=== PATIENT | male | born 1965 | race Caucasian/White ===

== ENCOUNTER 2025-02-13 07:51 | Day surgery (SDC) | payer OTHER ==
[~2025-02-13] VITALS: Ht 177.8 cm; Wt 104.5 kg
[~2025-02-13 07:51] MED LIST: ASPIRIN EC325 MG PO; BENADRYL25 MG PO; FAMOTIDINE20 MG PO; FLONASE ALLERG9.9 ML NAS; IBLOOD GLUCOSE TEST STRIP 1 EA TEST VI PRN; LACTATED RINGER'S 1,000 ML IV SCH; LIDOCAINE HCL 1% 5 ML SDV INJ ONE; LISINOPRIL10 MG PO; MIDAZOLAM HCL 5 MG/5 ML VIAL IV PRN; MK-7180 MCG PO; MULTIVITAMIN1 EACH PO; NORVASC5 MG PO; OMEPRAZOLE20 M1 PO; PROBIOTIC1 EAC5 PO; VITAMIN D350 MC3 PO; VITAMIN K-1500 MCG SL; VITAMIN K2 (M100 MCG PO; WELLBUTRIN XL150 MG PO; fentaNYL citrate 100 MCG/2 ML VIAL IV PRN
[2025-02-13 08:24] VITALS: BP 140/93
[2025-02-13] MEDS ORDERED: ESCITALOPRAM OXA5 MG PO (08:28)
[2025-02-13] MEDS ORDERED: MIDAZOLAM HCL 5 MG/5 ML VIAL ONE (09:00)
[2025-02-13] MEDS ORDERED: fentaNYL citrate 100 MCG/2 ML VIAL ONE (09:00)
--- NOTE | 2025-02-13 10:10 | NUR ---
02/13/25 1010 Shelbie Keller 1004- PT ARRIVES TO PACU, LEFT LATERAL POSITION, REACTIVE TO STIMULUS. BREATHING EVEN AND NON LABORED, O2 AT 3L PER NC. LR INFUSING TO LFA IV. PT ABD FIRM, ENCOURAGED TO PASS GAS, PT OPENS SLIGHTLY AND FALLS BACK TO SLEEP. ALL MONITORS IN PLACE. 1009- PT RESTING AT THIS TIME, PASSING GAS. CONTINUE TO MONITOR.
[2025-02-13 11:06] VITALS: BP 136/96
--- NOTE | 2025-02-13 12:48 | OR ---
[facility] [address] [place], [place] [address] Signed DATE OF OPERATION: 02/13/2025 SURGEON: Suma Vizcaino MD PREOPERATIVE DIAGNOSIS: Colon screening. POSTOPERATIVE DIAGNOSES: 1. Sigmoid diverticulosis. 2. Polyps x2, cecum and sigmoid colon PROCEDURE: Total colonoscopy to cecum with cold morcellation polypectomy x1 and hot snare polypectomy x1. ANESTHESIA: Intravenous sedation fentanyl 100 mcg and Versed 5 mg. INDICATION: This 60-year-old white man is a patient of ELMER Ang. He last underwent colonoscopy by me in 2013 at which time he was found to have diverticulosis. He has no current symptoms of bleeding, diarrhea, or constipation and no family history of colon cancer. He is admitted at this time to undergo colonoscopy. He understands the risk of bleeding, infection, and perforation. FINDINGS: The prep was excellent. Complete colonoscopy was undertaken of the cecum with full intubation of the cecum. He had numerous large diverticula of the sigmoid and left colon. There was one small polyp of the cecum, which was excised with cold morcellation technique and a larger sessile polyp at 25 cm, excised by hot snare polypectomy technique. There were no other findings of note. DESCRIPTION OF PROCEDURE: The patient was brought to the endoscopy suite and placed in lateral decubitus position, given intravenous sedation to the points of slurred speech and nystagmus. Digital rectal examination was normal. An Olympus video colonoscope was passed in the rectum and manipulated throughout the colon noting numerous diverticula of the sigmoid and left colon. Scope was ultimately passed to the cecum. The ileocecal valve and appendiceal orifice were normal. The Electronically Signed By: SUMA VIZCAINO MD 02/13/25 1248 PATIENT NAME: LI LACEY OPERATIVE REPORT DATE OF : 63 REPORT #: [id number] PHYSICIAN: SUMA VIZCAINO MD PCP: CARROLL ESPINOSA MD REPORT IS CONFIDENTIAL AND NOT TO BE RELEASED WITHOUT AUTHORIZATION [facility] [address] [place] [id number] Signed polyp of the cecum was excised with cold morcellation technique. The scope was then withdrawn. Examination showed no abnormality until approximately 25 cm from the anal verge where a sessile quite a bit larger polyp was noted, this was excised with hot snare polypectomy technique completely. A Carpio-Net was used to retrieve the polyp. The scope was further withdrawn, no other findings of note. He was taken to recovery room in good condition and suffered no complication. CONCLUDING DIAGNOSIS: Polyps x2 and diverticulosis. PLAN: Recommend repeat colonoscopy in 5 to 7 years, sooner if symptoms should develop. He will return to the ongoing care of ELMER Ang. MD VANNESSA Tate/ZULEIMA /[id number] cc: ELMER Ang Copies: JEREMY DOWNEY ~ Electronically Signed By: SUMA VIZCAINO MD 02/13/25 1248 PATIENT NAME: LI LACEY OPERATIVE REPORT DATE OF : 63 REPORT #: [id number] PHYSICIAN: SUMA VIZCAINO MD PCP: CARROLL ESPINOSA MD REPORT IS CONFIDENTIAL AND NOT TO BE RELEASED WITHOUT AUTHORIZATION
--- NOTE | 2025-02-17 12:09 | PATH ---
[facility] [address] [place], [place] [address] Signed SPECIMEN(S): A CECUM POLYP SPECIMEN(S): B COLON POLYP, 25 CM SPECIMEN SOURCE: A. CECUM POLYP B. COLON POLYP, 25 CM CLINICAL HISTORY: Screening, polyps x 2, diverticulosis FINAL PATHOLOGIC DIAGNOSIS: A. Cecum polyp: - Tubular adenoma (multiple fragments). B. Colon polyp at 25 cm: - Tubular adenoma. JVR:wade MICROSCOPIC EXAMINATION: Histologic sections of all submitted blocks are examined by light microscopy. These findings, together with the gross examination, support the pathologic diagnosis. GROSS DESCRIPTION: A. The specimen, labeled and designated "Little, S, cecum polyp," is received in formalin and consists of five byrnes soft tissue fragments, ranging from 0.1-0.4 cm. Entirely submitted in (A1). B. The specimen, labeled and designated "Little, S, colon polyp, 25 cm," is received in formalin and consists of one byrnes soft tissue fragment, 0.9 cm. Entirely submitted in (B1). AB (under the direct supervision of a pathologist) The Gross Description was prepared using a voice recognition system. The report was reviewed for accuracy; however, sound-alike word errors, addition and/or deletions may occur. If there is any question about this report, please contact Client Services. PERFORMING LABORATORY: Technical component was performed by [facility], [address] [place] [id number] (CLIA# [id number]). Professional interpretation was performed by [facility], [address] [place] [id number] (CLIA#: [id number]). PATIENT NAME: LI LACEY PATHOLOGY DATE OF : 63 REPORT #: [id number] PHYSICIAN: [facility] PCP: CARROLL ESPINOSA MD REPORT IS CONFIDENTIAL AND NOT TO BE RELEASED WITHOUT AUTHORIZATION [facility] [address] [place] [id number] Signed Diagnostician: Carrlol Alegria MD Pathologist Electronically Signed 02/17/2025 Copies: ~ PATIENT NAME: LI LACEY PATHOLOGY DATE OF : 63 REPORT #: [id number] PHYSICIAN: [facility] PCP: CARROLL ESPINOSA MD REPORT IS CONFIDENTIAL AND NOT TO BE RELEASED WITHOUT AUTHORIZATION
== END 2025-02-13 11:05 | disposition home or self-care (01) ==
LOC: DS 07:51
PROVIDERS: ATTEND Surgery
PROC: 0DBN8ZZ Excision of Sigmoid Colon, Via Natural or Artificial Opening Endoscopic (ICD-10-PCS; 2025-02-13)
PROC: 0DBH8ZZ Excision of Cecum, Via Natural or Artificial Opening Endoscopic (ICD-10-PCS; principal; 2025-02-13 09:00)
DX: Z12.11 Encounter for screening for malignant neoplasm of colon (principal); D12.0 Benign neoplasm of cecum; D21.6 Benign neoplasm of connective and other soft tissue of trunk, unspecified; K57.30 Diverticulosis of large intestine without perforation or abscess without bleeding; K40.90 Unilateral inguinal hernia, without obstruction or gangrene, not specified as recurrent
CPT/HCPCS: 99153; G0500; J2250; J3010; J7121

== ENCOUNTER 2025-02-26 05:50 | Day surgery (SDC) | payer OTHER ==
[~2025-02-26] VITALS: Ht 177.8 cm; Wt 104.5 kg
[~2025-02-26 05:50] MED LIST changes: +ALLERGY MEDICAT25 MG PO; +ASPIRIN REGIMEN81 MG PO; +ESCITALOPRAM OXA5 MG PO; -IBLOOD GLUCOSE TEST STRIP 1 EA TEST VI PRN; -LIDOCAINE HCL 1% 5 ML SDV INJ ONE; +MAG GLYCINATE100 MG PO; -MIDAZOLAM HCL 5 MG/5 ML VIAL IV PRN; +SAM-E400 MG; +SAW PALMETTO 1160 MG PO; -fentaNYL citrate 100 MCG/2 ML VIAL IV PRN
[2025-02-26 06:04] VITALS: BP 140/85
[2025-02-26] MEDS ORDERED: IBLOOD GLUCOSE TEST STRIP 1 EA TEST VI PRN ×2 (07:00→09:00)
[2025-02-26] MEDS ORDERED: LIDOCAINE HCL 1% 5 ML SDV INJ ONE (07:00)
[2025-02-26] MEDS ORDERED: HEParin SOD (PORCINE) 5,000 UNIT/ML SDV SUB-Q SCH (07:00)
[2025-02-26] MEDS ORDERED: CEFAZOLIN SODIUM 2 GM/20 ML SYR IV SCH (07:00)
[2025-02-26] MEDS ORDERED: SODIUM CHLORIDE 0.9% 20 ML IV ONE (07:10)
[2025-02-26] MEDS ORDERED: LIDOCAINE HCL 2% 5 ML SDV ONE (07:10)
[2025-02-26] MEDS ORDERED: dexmedeTOMIDine HCl 200 MCG/2 ML VIAL ONE (07:10)
[2025-02-26] MEDS ORDERED: DEXAMETHASONE SOD PHOS 4 MG/ML VIAL ONE ×2 (07:10→07:54)
[2025-02-26] MEDS ORDERED: Ropivacaine HCl 0.5% 30 ML VIAL ONE (07:10)
[2025-02-26] MEDS ORDERED: propofoL 200 MG/20 ML VIAL ONE (07:10)
[2025-02-26] MEDS ORDERED: ondansetron HCL 4 MG/2 ML VIAL ONE (07:54)
[2025-02-26] MEDS ORDERED: ePHEDrine sulfate 50 MG/ML AMP ONE (07:54)
[2025-02-26] MEDS ORDERED: ACETAMINOPHEN 1,000 MG/100 ML VIAL ONE (07:54)
[2025-02-26] MEDS ORDERED: KETOROLAC TROMETHAMINE 30 MG/ML VIAL ONE (07:54)
[2025-02-26] MEDS ORDERED: droPERidol 5 MG/2 ML VIAL ONE (08:07)
[2025-02-26] MEDS ORDERED: LACTATED RINGER'S 1,000 ML IV ONE (08:07)
[2025-02-26] MEDS ORDERED: ondansetron HCL 4 MG/2 ML VIAL IV PRN (09:00)
[2025-02-26] MEDS ORDERED: NALOXONE HCL 0.4 MG SYR IV PRN ×2 (09:00→09:30)
[2025-02-26] MEDS ORDERED: droPERidol 5 MG/2 ML VIAL IV PRN (09:00)
[2025-02-26] MEDS ORDERED: fentaNYL citrate 50 MCG/ML SDV IV PRN (09:00)
[2025-02-26] MEDS ORDERED: OXYCODONE/APAP 7.5/325 TAB PO PRN (09:30)
[2025-02-26] MEDS ORDERED: LACTATED RINGER'S 1,000 ML IV SCH (09:30)
[2025-02-26] MEDS ORDERED: ACETAMINOPHEN 500 MG TAB PO PRN (09:30)
[2025-02-26] MEDS ORDERED: IBUPROFEN 600 MG TAB PO PRN (09:30)
--- NOTE | 2025-02-26 09:30 | NUR ---
02/26/25 0930 Shelbie Keller 0918- PT ARRIVES TO PACU, SEMI PAIGE POSITION, NON REACTIVE TO STIMULUS. O2 AT 6L PER MASK, BREATHING EVEN AND NON LABORED. LR INFUSING TO RH IV. DRESSING IN PLACE TO LEFT GROIN WITH SMALL AMOUNT OF DRAINAGE. ABD SOFT, NON DISTENDED. ALL MONITORS IN PLACE. 0924- PT REACTIVE TO TACTILE STIMULUS. NO SIGNS OF DISTRESS. PT REMAINTS ASLEEP. CONTINUE TO MONITOR. 0927- PT WAKES TO VERBAL STIMULI, DENIES PAIN AND NAUSEA. MOVED TO ROOM AIR AT THIS TIME. PT FALLS BACK TO SLEEP. WILL CONTINUE TO MONITOR.
[2025-02-26] MEDS ORDERED: IBUPROFEN600 MG PO (09:31)
[2025-02-26] MEDS ORDERED: OXYCODON-ACETA1 EAC2 PO (09:31)
[2025-02-26] MEDS ORDERED: ACETAMINOPHEN500 MG PO (09:31)
[2025-02-26 09:48] VITALS: BP 124/72
--- NOTE | 2025-02-26 09:52 | NUR ---
0945- PT ARRIVES FROM PACU. BEDSIDE REPORT RECIEVED WITH AT CHAIRSIDE. PT DENIES PAIN AND NAUSEA. PT DENIES WANTS OR NEEDS AT THIS TIME. PT REPORTS FEELING "DROWSY". DISCHARGE CRITERIA DISCUSSED AND PT IS AGREEABLE. PT GIVEN WATER AND JELLO PER REQUEST. BED IN THE LOWEST POSITION AND LOCKED AND CALL LIGHT IN REACH.
--- NOTE | 2025-02-26 10:11 | EKG ---
[facility] [address] [facility] [place] [address] Signed Normal sinus rhythm Normal ECG No previous ECGs available Confirmed by Griselda Castaneda MD ([id number]) on 02/26/2025 10:11:31 AM Electronically Signed By: GRISELDA CASTANEDA MD 02/26/25 1011 PATIENT NAME: LI LACEY Electrocardiogram DATE OF : 63 PHYSICIAN: GRISELDA CASTANEDA MD REPORT #: [id number] REPORT IS CONFIDENTIAL AND NOT TO BE RELEASED WITHOUT AUTHORIZATION
[2025-02-26 10:55] VITALS: BP 144/73
--- NOTE | 2025-02-26 11:19 | NUR ---
1040- PT UP TO USE THE RESTROOM. PT HAS A STEADY AND EVEN GAIT. PT PASSES ALL DISCHARGE CRITERIA. PT BACK TO ROOM 6 AND GETTING DRESSED INDEPENDENTLY. 1110- DISCHARGE INFORMATION GONE OVER AND EDUCATION GIVEN. PT DENIES QUESTIONS OR CONCERNS. REPORTS SOME "PRESSURE" AT THE SITE, AND DENIES NAUSEA. IV REMOVED. PT HAS ALL BELONGINGS. PT DC FROM DAY SURGERY VIA WHEELCHAIR. PT THERE TO PICK PT UP IN VEHICLE.
[2025-02-26] MEDS ORDERED: SEVOFLURANE 250 ML BTL INH ONE (13:16)
--- NOTE | 2025-02-27 11:24 | OR ---
[facility] [address] [place], [place] [address] Signed DATE OF OPERATION: 02/26/2025 SURGEON: Suma Vizcaino MD PREOPERATIVE DIAGNOSIS: Left inguinal hernia. POSTOPERATIVE DIAGNOSIS: Left indirect inguinal hernia. PROCEDURE: Repair of left indirect inguinal hernia with implantation of Prolene mesh and inversion of broad-based hernia sac. ANESTHESIA: General LMA; Alexandra Munoz CRNA and local 0.25% Marcaine with epinephrine and preoperative inguinal block. 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 He is a patient of Jeremy Chapman. He was noted to have a left inguinal hernia on clinical examination. He has recently undergone colonoscopy, which was normal. The left inguinal hernia is reducible, not associated with constipation, urinary outlet obstructive symptoms or chronic cough. He understands the risk of left inguinal hernia repair included, but not limited to bleeding, infection, recurrence, and other unforeseen complications including testicular injury, nerve entrapment, etc. Understanding this, he wishes to proceed. FINDINGS: An indirect hernia sac was noted. It was rather broad-based and was inverted rather than elongated and excised. The floor of the canal was somewhat attenuated. Implantation of Prolene mesh in an underlay technique with ProGrip Prolene mesh was undertaken. The tails of the graft were secured around the cord but not circumferentially so as to avoid congestion of the cord. Optimal reconstruction of the floor was accomplished. DESCRIPTION OF PROCEDURE: The patient was brought to the operating room and given a general LMA type anesthetic after undergoing an inguinal block by the winder fixer. Preoperative antibiotic Ancef was given and sequential compression device stockings used. The lower abdomen was Electronically Signed By: SUMA VIZCAINO MD 02/27/25 1124 PATIENT NAME: LI LACEY OPERATIVE REPORT DATE OF : 63 REPORT #: [id number] PHYSICIAN: SUMA VIZCAINO MD PCP: CARROLL ESPINOSA MD REPORT IS CONFIDENTIAL AND NOT TO BE RELEASED WITHOUT AUTHORIZATION [facility] [address] [place], [place] [address] Signed clipped and prepared with chlorhexidine solution and draped sterilely. An incision was made cephalad to this pubic tubercle along the line of skin tension. Dissection was carried through the subcutaneous tissue. The external oblique was identified and incised along its fibers. A very bulky fatty cord was noted. It was mobilized from the floor with blunt electrocautery dissection and encircled with a Theron drain. The floor was attenuated, but hernia sac was quite clearly that of an indirect type closely associated with the cord structure itself. Hernia sac was dissected free from the cord with meticulous care, isolating it fully. It was broad-based and relatively short. Excision and ligation were deemed unnecessary. The hernia sac was inverted into the properitoneal space. An Allis clamp was applied to the tendon of the transversus abdominis. The attenuated fibers of the fascia of the transversalis were incised with electrocautery and blunt dissection undertaken identifying the properitoneal fat. A segment of ProGrip Prolene mesh was cut to an elliptical configuration and secured in an underlay technique with interrupted 2-0 Prolene sutures. Care was taken to ensure wide coverage of the floor. A defect was cut in the graft to accommodate the cord. Tails of the graft were secured laterally, but not tightened laterally so as to avoid congestion of the cord itself. The aperture of the cord with the mesh was snug but not tight. Irrigation was undertaken and 10 mL of 0.25% Marcaine with epinephrine was injected locally. The external oblique was partially secured over the cord with 2-0 Vicryl suture. Darleen layer was reapproximated with interrupted 2-0 Vicryl and skin closed with running subcuticular 3-0 Vicryl. Steri-Strips were applied as was an Acticoat dressing. The patient was extubated and transferred to the recovery room in good condition having suffered no complications. Sponge, needle, and instrument counts were as correct x3. Suma Vizcaino MD JM/MODL /[id number] cc: ELMER Ang Electronically Signed By: SUMA VIZCAINO MD 02/27/25 1124 PATIENT NAME: LI LACEY OPERATIVE REPORT DATE OF : 63 REPORT #: [id number] PHYSICIAN: SUMA VIZCAINO MD PCP: CARROLL ESPINOSA MD REPORT IS CONFIDENTIAL AND NOT TO BE RELEASED WITHOUT AUTHORIZATION [address] [address] Signed Copies: JEREMY CHAPMAN ~ Electronically Signed By: SUMA VIZCAINO MD 02/27/25 1124 PATIENT NAME: LI LACEY ALAN OPERATIVE REPORT DATE OF : 63 REPORT #: [id number] PHYSICIAN: SUMA VIZCAINO MD PCP: CARROLL ESPINOSA MD REPORT IS CONFIDENTIAL AND NOT TO BE RELEASED WITHOUT AUTHORIZATION
== END 2025-02-26 11:13 | disposition home or self-care (01) ==
LOC: DS 05:50
PROVIDERS: ATTEND Surgery
PROC: 0YU60JZ Supplement Left Inguinal Region with Synthetic Substitute, Open Approach (ICD-10-PCS; principal; 2025-02-26 07:30)
DX: K40.90 Unilateral inguinal hernia, without obstruction or gangrene, not specified as recurrent (principal); Z98.1 Arthrodesis status
CPT/HCPCS: 00830; 93005; 93010; C1781; J0131; J0690; J1100; J1644; J1790; J1885; J2003; J2405; J2704; J2795; J7121